=== PATIENT | female | born 1930 | race Caucasian/White ===

== ENCOUNTER → 2016-12-30 | Outpatient (CLI) | payer MEDICARE, BC ==
[~2016-12-30] MED LIST: ALEVE 220MG220 MG PO; AMBIEN 5MG TABLE5 MG PO; COLACE 100100 MG/CAP PO; COUMADIN 22.5 MG/TAB PO; DULCOLAX10 MG RC; FISH OIL CONCEN1 SG2 PO; HCTZ12.5TAB PO; IRON325 M2 PO; LOPRESSOR 225 MG/TAB PO; MILK OF MA400 MG/5 M PO; MIRALAX PA17 GM/Dose PO; MOBIC15 MG PO; MULTI VITAMINS1 TAB PO; NORCO 325 MG-51 TAB PO; NORVASC 5MG5 MG/TAB PO; OXY IR5 MG PO; PACERONE400 MG PO; PRILOSEC 20MG20 MG PO; PROTONIX 40MG T40 MG PO; TYLENOL 325MG325 MG PO; TYLENOL 500MG500 MG PO; ULTRAM 50MG TAB50 MG PO; VITAMIN C500 MG PO; ZOFRAN 4MG T4 MG/TAB PO
== END ==
LOC: MHCPAIN 09:51
DX: G89.29 Other chronic pain (principal); M50.90 Cervical disc disorder, unspecified, unspecified cervical region; R51 Headache
CPT/HCPCS: G0463

== ENCOUNTER 2017-01-02 12:00 | Emergency (ER) | payer MEDICARE, BC ==
[~2017-01-02] VITALS: Ht 162.6 cm; Wt 70.0 kg
[2017-01-02 12:02] VITALS: TEMP 96.2
[2017-01-02 12:49] LABS: BASO # 0.1 (0.0-0.2); BASO % 0.9 % (0.0-2.0); EOS # 0.4 (0.0-0.7); EOS % 5.3 % (0-4.0); GRAN # 5.1 (1.4-6.5); GRAN % 72.4 % (42.2-75.2); HEMATOCRIT 39.8 % (37.0-47.0); HEMOGLOBIN 13.7 g/dl (12.5-16.0); LYMPH % 14.2 % (20.0-51.0); MEAN CELL VOLUME 91 fl (80.0-100.0); MEAN CORPUSCULAR HEMOGLOBIN 31 pg (27.0-31.0); MEAN CORPUSCULAR HGB CONC 34 g/dl (33.0-37.0); MEAN PLATELET VOLUME 8.8 fl (7.4-10.4); MONO # 0.5 (0.1-0.6); MONO % 6.9 % (1.7-9.3); PLATELET COUNT 244 K/mm3 (130-400); RED BLOOD COUNT 4.39 M/mm3 (4.10-5.30); REDCELL DISTRIBUTION WIDTH-CV 12.3 % (11.5-14.5)
[2017-01-02 12:51] LABS: PROTHROMBIN TIME 11.5 SECONDS (9.7-12.8)
[2017-01-02 13:07] LABS: ADJUSTED CALCIUM 9.6 mg/dL (8.4-10.2); ALANINE AMINOTRANSFERASE 33 U/L (9-52); ALBUMIN 4.4 gm/dL (3.5-5.0); ALKALINE PHOSPHATASE 96 U/L (50-136); ANION GAP 12 mmol/L (7-16); BILIRUBIN,TOTAL 0.7 mg/dL (0.0-1.0); BLOOD UREA NITROGEN 20 mg/dL (7-17); CALCIUM 9.9 mg/dL (8.4-10.2); CARBON DIOXIDE 28 mmol/L (22-30); CHLORIDE 101 mmol/L (98-107); CREATINE KINASE 62 U/L (30-135); CREATININE, serum 0.84 mg/dL (0.52-1.25); GLUCOSE 96 mg/dL (74-106); LIPASE 107 U/L (23-300); POTASSIUM 3.8 mmol/L (3.4-5.0); SODIUM 141 mmol/L (137-145); TOTAL PROTEIN 7.9 gm/dL (6.4-8.2)
[2017-01-02 13:34] LABS: B-TYPE NATRIURETIC PEPTIDE 148 pg/mL (0-450); TROPONIN-I < 0.012 ng/mL (0.000-0.034)
[2017-01-02 15:36] VITALS: BP 141/73; PULSE 70
== END 2017-01-02 16:23 | disposition home or self-care (01) ==
LOC: COL.ER 12:00
PROVIDERS: Emergency Medicine
DX: I10 Essential (primary) hypertension (principal); I49.3 Ventricular premature depolarization; R07.9 Chest pain, unspecified

== ENCOUNTER → 2017-01-16 | Outpatient (CLI) | payer MEDICARE, BC | LOC: MHCPAIN 09:25 | DX: M50.30 Other cervical disc degeneration, unspecified cervical region (principal) ==

== ENCOUNTER → 2017-01-21 | Outpatient (CLI) | payer MEDICARE, BC | LOC: MHCPAIN 10:10 | DX: G89.29 Other chronic pain (principal); M50.90 Cervical disc disorder, unspecified, unspecified cervical region; R51 Headache | CPT/HCPCS: G0463 ==

== ENCOUNTER → 2017-01-23 | Outpatient (CLI) | payer MEDICARE, BC | LOC: MHCPAIN 13:16 | DX: M47.812 Spondylosis without myelopathy or radiculopathy, cervical region (principal) ==

== ENCOUNTER → 2017-02-04 | Outpatient (CLI) | payer MEDICARE, BC | LOC: MHCPAIN 09:20 | DX: G89.29 Other chronic pain (principal); M50.90 Cervical disc disorder, unspecified, unspecified cervical region; R51 Headache | CPT/HCPCS: G0463 ==

== ENCOUNTER → 2017-02-13 | Outpatient (CLI) | payer MEDICARE, BC | LOC: MHCPAIN 10:30 | DX: M50.30 Other cervical disc degeneration, unspecified cervical region (principal) | CPT/HCPCS: J1100 ==

== ENCOUNTER → 2017-03-17 | Outpatient (CLI) | payer MEDICARE, BC | LOC: MHCPAIN 09:37 | DX: G89.29 Other chronic pain (principal); M50.90 Cervical disc disorder, unspecified, unspecified cervical region; M54.81 Occipital neuralgia; R51 Headache | CPT/HCPCS: G0463 ==

== ENCOUNTER → 2017-06-09 | Outpatient (CLI) | payer MEDICARE, BC | LOC: MHCPAIN 09:05 | DX: G89.29 Other chronic pain (principal); M50.90 Cervical disc disorder, unspecified, unspecified cervical region; R51 Headache; Z79.82 Long term (current) use of aspirin | CPT/HCPCS: G0463 ==

== ENCOUNTER → 2018-03-20 | Outpatient (CLI) | payer MEDICARE, BC | LOC: MC.RAD 10:59 | DX: Z12.31 Encounter for screening mammogram for malignant neoplasm of breast (principal); Z98.890 Other specified postprocedural states ==

== ENCOUNTER 2019-02-28 19:05 | Emergency (ER) | payer MEDICARE, BC ==
[~2019-02-28] VITALS: Ht 160 cm; Wt 66.4 kg
[2019-02-28 19:17] VITALS: TEMP 98.4
[2019-02-28] MEDS ORDERED: ASPIRIN 81M81 MG/TA2 PO (19:24)
[2019-02-28] MEDS ORDERED: HCTZ12.5TAB PO (19:25)
[2019-02-28] MEDS ORDERED: MOBIC15 MG PO (19:25)
[2019-02-28] MEDS ORDERED: ORAPRED ODT10 MG PO (19:26)
[2019-02-28] MEDS ORDERED: LUTEIN 15 MG-0.1 SGL PO (19:26)
[2019-02-28 21:57] VITALS: BP 157/70; PULSE 84
== END 2019-02-28 21:57 | disposition home or self-care (01) ==
LOC: COL.ER 19:05
DX: M25.511 Pain in right shoulder (principal); I48.91 Unspecified atrial fibrillation; Z98.890 Other specified postprocedural states; Z79.01 Long term (current) use of anticoagulants; Z79.82 Long term (current) use of aspirin

== ENCOUNTER 2019-03-04 12:45 | Outpatient (RCR) | payer MEDICARE, BC ==
[~2019-03-04 12:45] MED LIST changes: +ASPIRIN 81M81 MG/TA2 PO; +LUTEIN 15 MG-0.1 SGL PO; +ORAPRED ODT10 MG PO
== END 2019-04-25 | disposition home or self-care (01) ==
LOC: WSST
DX: R49.0 Dysphonia (principal)

== ENCOUNTER 2019-05-12 10:57 | Day surgery (SDC) | payer MEDICARE, BC ==
[~2019-05-12] VITALS: Ht 160 cm; Wt 65.3 kg
[2019-05-12] VITALS (10 sets, daily range): BP systolic 110–150; BP diastolic 48–68; PULSE 62–78; TEMP 97.6–98.2
[2019-05-12 12:34] LABS: BASO % 0.8 % (0.0-2.0); EOS # 0.3 (0.0-0.7); EOS % 5.1 % (0-4.0); GRAN # 3.3 (1.4-6.5); GRAN % 64.5 % (42.2-75.2); HEMATOCRIT 39.6 % (37.0-47.0); HEMOGLOBIN 13.8 g/dl (12.5-16.0); LYMPH % 18.9 % (20.0-51.0); MEAN CELL VOLUME 90 fl (80.0-100.0); MEAN CORPUSCULAR HEMOGLOBIN 31 pg (27.0-31.0); MEAN CORPUSCULAR HGB CONC 35 g/dl (33.0-37.0); MEAN PLATELET VOLUME 8.9 fl (7.4-10.4); MONO # 0.5 (0.1-0.6); MONO % 10.5 % (1.7-9.3); PLATELET COUNT 256 K/mm3 (130-400); REDCELL DISTRIBUTION WIDTH-CV 12.1 % (11.5-14.5)
[2019-05-12] MEDS ORDERED: BUSPAR5 MG PO (12:41)
[2019-05-12 12:44] LABS: CALCIUM 9.6 mg/dL (8.4-10.2); CREATININE, serum 0.59 (0.52-1.25)
[2019-05-12] MEDS ORDERED: FISH OIL 1000MG1 CAP PO (17:11)
--- NOTE | 2019-05-12 19:39 | NUR ---
Patient received post op to 344, report from Kim Pacu nurse. Patient has rested post op with family at bedside. Vss on O2. Reports of neck pain, morphine IV given per request. Iv to Right hand, IVF infusing. Scds ble. Neck incision open to air. MOISES drain to compression. Patient not interested in eating, but has tolerated ice chips without nausea. She has yet to void. Bedside report to Jocelyn HILLS
--- NOTE | 2019-05-12 20:44 | NUR ---
Spoke with Dr Goldberg regarding patients decreased oral intake, new order to continue IVF at 75cc/hr for overnight, doctor also recommended patient take the Tramadol for pain control. Relayed information to patient and her daughter, patient takes Tramadol 50mg po now and her HS med. Takes ice cream at this time also. Drain intact to bulb suction. Cleansed incisional area to neck and applied Bacitracin ointment. IV to right hand without redness or swelling. Pt rates pain 6/10 to neck.
--- NOTE | 2019-05-12 22:30 | NUR ---
Assisted to BSC, voids and back to bed. Oxygen removed, SaO2 95% on room air.
[2019-05-13 04:19] VITALS: BP 123/50; PULSE 60; TEMP 97.5
--- NOTE | 2019-05-13 04:30 | NUR ---
Patient awake, denies need for pain meds. Has 15cc of drainage from MOISES. Sipping on grape juice at this time.
[2019-05-13 07:37] VITALS: BP 132/58; PULSE 71; TEMP 98.2
--- NOTE | 2019-05-13 08:00 | NUR ---
UPON ENTRY INTO ROOM PATIENT RETURNING TO BED WITH NURSING STAFF FROM THE BATHROOM. PATIENT IS A&OX4. IRREGULAR HEART RHYTHM WITH REGULAR RATE NOTED, VSS. SHALLOW BREATHING NOTED. BOWEL SOUNDS ACTIVE ALL FOUR QUADRANTS. PATIENT TOLERATING DIET WITH SOME SWALLOWING DIFFULTIES DUE TO IRRITATION IN THE THROAT FROM SURGERY. PATIENT'S VOICE SOFT, BUT CLEAR. PATIENT DENIES NUMBNESS, TINGLING OR MUSCLE TWITCHING IN THE FACE. PATIENT DENIES N/V. TRANSVERSE NECK INCISION WEB SITE DEVELOPER WITH EDGES WELL APPROXIMATED. NECK MOISES SITE DRESSED WITH GAUZE AND TAPE, AND IS CD&I. OINTMENT APPLIED TO INCISION PER DR. ORDERS. PATIENT HAS SOME WEAKNESS. POSITIVE PEDAL PULSES EQUAL BILATERALLY. RIGHT HAND INT DISCONTINUED PER PENDING DISCHARGE. TIP INTACT. PATIENT TOLERATED WELL. CALL LIGHT WITHIN REACH. DAUGHTER AT THE BEDSIDE. PATIENT DENIES ANY OTHER NEEDS AT THIS TIME.
--- NOTE | 2019-05-13 09:33 | NUR ---
DISCHARGE INSTRUCTIONS REVIEWED WITH DAUGHTER AND PATIENT. ALL QUESTIONS ANSWERED. PATIENT PERSONAL BELONGINGS GATHERED.
--- NOTE | 2019-05-13 09:45 | NUR ---
PATIENT TAKEN TO PERSONAL VEHICLE VIA WHEELCHAIR BY SURGICAL STAFF. PATIENT DISCHARGED.
--- NOTE | 2019-05-13 09:47 | NUR ---
First visit from the community health representative. No needs right now.
== END 2019-05-13 09:45 | disposition home or self-care (01) ==
LOC: SDCO 10:57 → SURG 16:32 → SDCO 05-13 09:45
PROVIDERS: Otolaryngology
DX: E04.9 Nontoxic goiter, unspecified (principal); I10 Essential (primary) hypertension; M19.90 Unspecified osteoarthritis, unspecified site; E78.00 Pure hypercholesterolemia, unspecified; E78.5 Hyperlipidemia, unspecified; I48.0 Paroxysmal atrial fibrillation; F32.9 Major depressive disorder, single episode, unspecified; Z88.6 Allergy status to analgesic agent; Z79.82 Long term (current) use of aspirin; Z79.891 Long term (current) use of opiate analgesic; Z82.49 Family history of ischemic heart disease and other diseases of the circulatory system; Z80.9 Family history of malignant neoplasm, unspecified; Z90.49 Acquired absence of other specified parts of digestive tract; Z90.710 Acquired absence of both cervix and uterus; Z96.653 Presence of artificial knee joint, bilateral
CPT/HCPCS: OP; J0330; J0360; J1100; J2270; J2405; J2704; J3010; J7120; Q2026

== ENCOUNTER 2020-03-01 09:57 | Inpatient (IN) | payer MEDICARE, BC ==
[~2020-03-01] VITALS: Ht 157.5 cm; Wt 52.5 kg
[~2020-03-01 09:57] MED LIST changes: +BUSPAR5 MG PO; +FISH OIL 1000MG1 CAP PO
[2020-03-01 10:46] LABS: ALANINE AMINOTRANSFERASE 16 U/L (4-34); ALBUMIN 3.8 gm/dL (3.5-5.0); ANION GAP 7 mmol/L (7-16); AST,SGOT 26 U/L (15-37); BILIRUBIN,TOTAL 0.4 mg/dL (0.0-1.0); BLOOD UREA NITROGEN 60 mg/dL (7-17); CARBON DIOXIDE 29 mmol/L (22-30); CHLORIDE 99 mmol/L (98-107); CREATININE, serum 0.55 (0.52-1.25); LIPASE 59 U/L (23-300); POTASSIUM 3.7 mmol/L (3.4-5.0); SODIUM 136 mmol/L (137-145); TOTAL PROTEIN 6.6 gm/dL (6.4-8.2)
[2020-03-01 10:47] LABS: ALKALINE PHOSPHATASE 63 U/L (50-136); CALCIUM 9.3 mg/dL (8.4-10.2); GLUCOSE 136 mg/dL (74-106)
[2020-03-01] MEDS ORDERED: ATROPINE SULFATE5 ML OP (10:53)
[2020-03-01 10:56] LABS: BASO % 0.4 % (0.0-2.0); EOS % 0.1 % (0-4.0); GRAN # 6.6 (1.4-6.5); GRAN % 79.7 % (42.2-75.2); INR 1.1 (0.8-3.0); LYMPH # 1.1 (1.2-3.4); LYMPH % 13.1 % (20.0-51.0); MEAN CELL VOLUME 90 fl (80.0-100.0); MEAN CORPUSCULAR HGB CONC 33 g/dl (33.0-37.0); MEAN PLATELET VOLUME 9.6 fl (7.4-10.4); MONO # 0.5 (0.1-0.6); MONO % 6.1 % (1.7-9.3); PLATELET COUNT 282 K/mm3 (130-400); PROTHROMBIN TIME 12.2 SECONDS (9.7-12.8); RED BLOOD COUNT 3.19 M/mm3 (4.10-5.30); REDCELL DISTRIBUTION WIDTH-CV 12.3 % (11.5-14.5)
[2020-03-01 10:58] LABS: HEMATOCRIT 28.8 % (37.0-47.0); HEMOGLOBIN 9.6 g/dl (12.5-16.0); MEAN CORPUSCULAR HEMOGLOBIN 30 pg (27.0-31.0)
[2020-03-01 11:06] LABS: TROPONIN-I < 0.012 ng/mL (0.000-0.035)
[2020-03-01 13:09] VITALS: BP 124/69; PULSE 99; TEMP 97.7
--- NOTE | 2020-03-01 14:22 | NUR ---
Pt admitted to medical unit rm [id number] from ED via WC, A&O x 3, assist x 1 getting into bed. Saline lock IV to left AC without s/s of complications. Pt denies pain at this time. Hushed voice d/t surgical hx. POC reviewed with pt. No further needs reported. Call light in reach.
[2020-03-01 16:10] VITALS: BP 117/67; PULSE 82; TEMP 98
[2020-03-01 18:15] LABS: HEMATOCRIT 24.3 % (37.0-47.0); HEMOGLOBIN 8.3 g/dl (12.5-16.0)
--- NOTE | 2020-03-01 18:30 | NUR ---
Pt sitting up on side of bed eating dinner, denies pain or needs. IVF's infusing per orders to left AC without s/s of complications. Call light in reach.
[2020-03-01 19:39] VITALS: BP 131/56; PULSE 93; TEMP 98.4
--- NOTE | 2020-03-01 21:57 | NUR ---
Received report from REINIER Black. Alert and oriented. Denies any pain, nausea, or abdominal discomfort at this time. Meds administered as ordered. IV to LAC intact with fluids infusing. SCD in place to BLE. Tele monitor in place, leads checked. Pt understands POC, NPO at midnight. Needs met at this time. Call light within reach.
--- NOTE | 2020-03-01 22:38 | NUR ---
Pt requested to sit in recliner chair. Lindsey assist with use of walker from bed to recliner chair. Pt watching TV at this time. Needs met. call light within reach.
[2020-03-02] VITALS (10 sets, daily range): BP systolic 125–151; BP diastolic 45–74; PULSE 58–93; TEMP 97.6–98.3
--- NOTE | 2020-03-02 00:07 | NUR ---
Standby assist with use of walker from recliner chair to BR to bed. Made pt comfortable. SCD in place. Needs met. Call light within reach.
--- NOTE | 2020-03-02 05:38 | NUR ---
Needs attended too throughout this shift. No complaints of pain or nausea. Remained NPO since midnight. SCDs off at this time. Call light within reach.
[2020-03-02 06:13] LABS: BASO % 0.6 % (0.0-2.0); EOS # 0.1 (0.0-0.7); EOS % 2.7 % (0-4.0); GRAN # 3.2 (1.4-6.5); GRAN % 60.8 % (42.2-75.2); LYMPH # 1.4 (1.2-3.4); MEAN CELL VOLUME 93 fl (80.0-100.0); MEAN CORPUSCULAR HGB CONC 34 g/dl (33.0-37.0); MEAN PLATELET VOLUME 9.6 fl (7.4-10.4); MONO # 0.5 (0.1-0.6); MONO % 9.5 % (1.7-9.3); PLATELET COUNT 212 K/mm3 (130-400); RED BLOOD COUNT 2.65 M/mm3 (4.10-5.30); REDCELL DISTRIBUTION WIDTH-CV 12.7 % (11.5-14.5)
[2020-03-02 06:19] LABS: HEMATOCRIT 24.6 % (37.0-47.0); HEMOGLOBIN 8.3 g/dl (12.5-16.0); MEAN CORPUSCULAR HEMOGLOBIN 31 pg (27.0-31.0)
[2020-03-02 06:50] LABS: CALCIUM 8.4 mg/dL (8.4-10.2); CREATININE, serum 0.45 (0.52-1.25); POTASSIUM 3.2 mmol/L (3.4-5.0)
--- NOTE | 2020-03-02 06:54 | NUR ---
Report given to REINIER Vail.
--- NOTE | 2020-03-02 07:44 | NUR ---
PATIENT DOWN TO [facility] FOR SCHEDULED EGD WITH DR GUTIÉRREZ. LEFT FLOOR VIA STRETCHER ACCOMPANIED BY MICAELA HILLS. VERBAL REPORT GIVEN BEFORE LEAVING UNIT. PATIENT A/O X4 AT TIME OF TRANSFER. DENIES COMPLAINTS OF PAIN OR DISCOMFORT. AMBULATED WITH WALKER TO STRETCHER WITH SLOW STEADY GAIT. SIGNED CONSENT FOR PROCEDURE ON CHART. NEW IV SITE TO RIGHT FOREARM OBTAINED. LEFT AC IV SITE DISCONTINUED D/T DRAINAGE WHEN FLUSHED.
--- NOTE | 2020-03-02 09:11 | NUR ---
0840: Patient back in room from Endoscopy. Arrived to room via stretcher accompanied by Alana HILLS. Patient A/O x 4. Denies c/o pain or discomfort. States "I am really sleepy. See flow sheet for FVS obtained. Ice Water and Apple Juice provided per patient request. Observed to swallow apropriately with no coughing or choking. IVF infusing as ordered. Potassium replacement IVP initiated as ordered for serum K+ of 3.2 this AM 03/02/20. encouraged patient to notify this nurse of any pain or discomfort at IV site during potassium infusion. Acknowledged understanding.
--- NOTE | 2020-03-02 19:50 | NUR ---
Up to restroom and returned to bed. Assessment complete. Left lobes wheezing. Right lobes clear. Heart sounds normal. Bowels active. Pulses present throughout. No edema noted. Denies pain. Denies other needs at this time. Unable to take scheduled vitamin C tablet due to swallowing difficulties. Daughter Halle called for update. Updated Halle. Phone given to patient to speak with daughter. Call light in reach. Bed alarm in place.
[2020-03-03] VITALS (7 sets, daily range): BP systolic 122–168; BP diastolic 60–71; PULSE 54–101; TEMP 97.3–98.7
--- NOTE | 2020-03-03 00:15 | NUR ---
Patient awake and confused. Reports hearing voices and needing to call police. Patient concerned/scared of noises in hallway. Reorientated patient. VS taken. BP elevated. Assisted back into bed. Will monitor.
--- NOTE | 2020-03-03 04:13 | NUR ---
Resting in bed. Denies needs. Call light in reach.
--- NOTE | 2020-03-03 05:08 | NUR ---
Patient had one episode of confusion during night. Up to restroom several times throughout night. Otherwise uneventful. Resting in bed currently. Call light in reach. Bed alarm in place.
[2020-03-03 05:35] LABS: BASO % 0.4 % (0.0-2.0); EOS # 0.2 (0.0-0.7); EOS % 2.6 % (0-4.0); GRAN # 5.7 (1.4-6.5); LYMPH # 1.3 (1.2-3.4); LYMPH % 16.3 % (20.0-51.0); MEAN CELL VOLUME 93 fl (80.0-100.0); MEAN CORPUSCULAR HGB CONC 34 g/dl (33.0-37.0); MEAN PLATELET VOLUME 9.6 fl (7.4-10.4); MONO # 0.6 (0.1-0.6); MONO % 7.4 % (1.7-9.3); PLATELET COUNT 228 K/mm3 (130-400); RED BLOOD COUNT 2.65 M/mm3 (4.10-5.30); REDCELL DISTRIBUTION WIDTH-CV 12.6 % (11.5-14.5)
[2020-03-03 05:36] LABS: HEMATOCRIT 24.5 % (37.0-47.0); HEMOGLOBIN 8.3 g/dl (12.5-16.0); MEAN CORPUSCULAR HEMOGLOBIN 31 pg (27.0-31.0)
[2020-03-03 05:45] LABS: CALCIUM 8.1 mg/dL (8.4-10.2); CREATININE, serum 0.36 (0.52-1.25); MAGNESIUM 1.8 mg/dL (1.6-2.3); POTASSIUM 3.5 mmol/L (3.4-5.0)
--- NOTE | 2020-03-03 07:11 | NUR ---
Report given to REINIER Stokes
--- NOTE | 2020-03-03 08:00 | NUR ---
Pt awake and alert upon entry, no C/O pain at this time, shift assessments complete, left Pt call light in reach, bed in lowest position.
--- NOTE | 2020-03-03 09:47 | NUR ---
ERLINDA met with the patient to complete initial intake. [place] The patient states she has support and her daughter, Halle lives 1/2 mile away. The patient has a cane and a walker which she uses to ambulate. The patient's PCP is Dr. Barragan and receives medications from [facility] and one of her daughters picks up medications. The patient has advanced directives in the EMR. OT is recommending HHS. ERLINDA asked the patient which daughter she would like me to call to discuss options. She stated Sindy. ERLINDA contacted Sindy and the patient has home health services with [facility] and would like to continue with them. After the phone call ERLINDA contacted Shoaib with [facility] and he confirmed that they began HHS with the patient on February 27. ERLINDA faxed updates to Shoaib. Will continue to monitor.
--- NOTE | 2020-03-03 18:40 | NUR ---
Pr resting in the room today. ST recommended a mechanical soft diet after her swallow study, thin liquids may be given promping Pt to tuck her chin to swallow, her medications should be given crushed in applesauce or pudding. Pt had no other complaints today, VS have remained stable.
--- NOTE | 2020-03-03 19:29 | NUR ---
Sindy called for update. Security code provided. Updated Sindy. Concerned with patient wanting cell phone. Instructed to leave at front ER doors for patient. Denies any further questions.
--- NOTE | 2020-03-03 21:30 | NUR ---
Resting in bed. Assessment complete. Lungs clear. Heart sounds normal. Bowels active x4. Pulses present throughout. No edema noted. INT right forearm without complications. Denies pain. Refused atropine eye drops. Reports causes dry mouth at night. Denies needs at this time. Call light in reach. Bed alarm in place.
--- NOTE | 2020-03-04 | NUR ---
Resting in bed. Denies needs. Call light in reach.
--- NOTE | 2020-03-04 04:05 | NUR ---
Up to restroom and returned to bed. Denies needs. Call light in reach.
[2020-03-04 04:11] VITALS: BP 136/49; PULSE 58; TEMP 98.6
--- NOTE | 2020-03-04 06:17 | NUR ---
Patient had uneventful night. Up to restroom during night with assistance. Denies needs this AM. Call light in reach.
[2020-03-04 06:20] LABS: BASO % 0.6 % (0.0-2.0); EOS # 0.3 (0.0-0.7); EOS % 3.8 % (0-4.0); GRAN # 4.7 (1.4-6.5); GRAN % 69.1 % (42.2-75.2); LYMPH # 1.2 (1.2-3.4); LYMPH % 17.6 % (20.0-51.0); MEAN CELL VOLUME 93 fl (80.0-100.0); MEAN CORPUSCULAR HGB CONC 33 g/dl (33.0-37.0); MEAN PLATELET VOLUME 9.8 fl (7.4-10.4); MONO # 0.6 (0.1-0.6); MONO % 8.5 % (1.7-9.3); PLATELET COUNT 249 K/mm3 (130-400); RED BLOOD COUNT 2.92 M/mm3 (4.10-5.30); REDCELL DISTRIBUTION WIDTH-CV 12.8 % (11.5-14.5)
[2020-03-04 06:26] LABS: HEMATOCRIT 27.1 % (37.0-47.0); MEAN CORPUSCULAR HEMOGLOBIN 31 pg (27.0-31.0)
[2020-03-04 06:35] LABS: CALCIUM 8.9 mg/dL (8.4-10.2); CREATININE, serum 0.4 (0.52-1.25); POTASSIUM 3.7 mmol/L (3.4-5.0)
--- NOTE | 2020-03-04 07:10 | NUR ---
Report given to REINIER Stokes
[2020-03-04 08:22] VITALS: BP 141/75; PULSE 97; TEMP 97.6
--- NOTE | 2020-03-04 08:59 | NUR ---
Pt awake and alert upon entry, assisted to restroom, ambulates well with walker, no C\O pain at this time, medications given crushed with applesauce, no swallowing issues noted. Shift assessments complete, left Pt sitting on the side of the bed eating breakfast, call light in reach.
[2020-03-04] MEDS ORDERED: PRILOTC PO (10:21)
[2020-03-04] MEDS ORDERED: CARAFATE S1 GM/10 ML PO (10:25)
[2020-03-04 11:36] VITALS: BP 132/72; PULSE 89; TEMP 98.2
[2020-03-04 16:41] VITALS: BP 149/59; PULSE 106; TEMP 98.1
--- NOTE | 2020-03-04 18:25 | NUR ---
Pt discharged to home, discussed dischard instructions, answered all questions. Pt escorted to entrance, assisted into vehicle, Pt left with family via private auto.
== END 2020-03-04 18:00 | disposition home health service (06) | DRG 377 ==
LOC: COL.ER 09:57 → MEDICAL 10:55
PROVIDERS: Emergency Medicine; Internal Medicine Gastroenterology; Physician Assistant; ADMIT Internal Medicine
PROC: 0DB68ZX Excision of Stomach, Via Natural or Artificial Opening Endoscopic, Diagnostic (ICD-10-PCS; principal; 2020-03-02 08:00)
DX: K26.0 Acute duodenal ulcer with hemorrhage (principal); E43 Unspecified severe protein-calorie malnutrition; G12.21 Amyotrophic lateral sclerosis; I10 Essential (primary) hypertension; K29.30 Chronic superficial gastritis without bleeding; D50.0 Iron deficiency anemia secondary to blood loss (chronic); R13.10 Dysphagia, unspecified; F41.9 Anxiety disorder, unspecified; M19.90 Unspecified osteoarthritis, unspecified site; Z66 Do not resuscitate; Z86.010 Personal history of colon polyps; R49.0 Dysphonia; Z88.5 Allergy status to narcotic agent; R00.0 Tachycardia, unspecified; E87.6 Hypokalemia; T39.395A Adverse effect of other nonsteroidal anti-inflammatory drugs [NSAID], initial encounter; Z79.82 Long term (current) use of aspirin
CPT/HCPCS: 99222-AI; 99231-AI; 99232-AI; C9113; J2704; J3480; J7030